=== PATIENT | male | born 1985 | race Caucasian/White ===

== ENCOUNTER 2017-07-10 11:30 | Emergency (ER) | payer MEDICAID, OTHER ==
[2017-07-10 11:37] VITALS: BP 125/84; PULSE 101; RESP 16; TEMP 96.8; O2SAT 98
[2017-07-10] MEDS ORDERED: NS 1,000 ML IV ONE (11:51)
[2017-07-10] MEDS ORDERED: ONDANSETRON 4 MG/2 ML VIAL IVP ONE (11:54)
[2017-07-10 11:55] LABS: PLATELET COUNT 268 10^3/uL (150-400)
--- NOTE | 2017-07-10 11:56 | EDPHY ---
H & P Stated Complaint: abd pain N/V/D x 1 week Time Seen by Provider: 07/10/17 11:50 HPI/ROS: CHIEF COMPLAINT: Abdominal pain, vomiting and diarrhea HISTORY OF PRESENT ILLNESS: The patient presents to the ED with complaints of severe left upper quadrant pain, vomiting and diarrhea. The patient's symptoms have been worsening over the past week and acutely worsening over the past day. The patient does have a history of chronic abdominal pain. He reportedly has been hospitalized for this condition in the past. He reports he has a history of pancreatitis. The patient denies any alcohol use. The patient denies prior history of abdominal surgery. The patient is not currently under the care of a primary care provider. He reportedly has a history of kidney stones. He reports he has been hospitalized at [facility] for this condition in the past. The patient reports his pain is 10/10. REVIEW OF SYSTEMS: A comprehensive 10 point review of systems is otherwise negative aside from elements mentioned in the history of present illness. Source: Patient Exam Limitations: No limitations - Medical/Surgical History Hx Asthma: No Hx Chronic Respiratory Disease: No Hx Diabetes: No Hx Cardiac Disease: No Hx Renal Disease: No Hx Cirrhosis: No Hx Alcoholism: No Hx HIV/AIDS: No Hx Splenectomy or Spleen Trauma: No Other PMH: prostatitis. pancreatitis - Social History Smoking Status: Never smoked - Physical Exam Exam: General Appearance: Alert, mild discomfort secondary to pain Eyes: Pupils equal and round no pallor or injection ENT, Mouth: Mucous membranes moist Respiratory: There are no retractions, lungs are clear to auscultation Cardiovascular: Regular rate and rhythm Gastrointestinal: Tenderness to palpation in the left upper quadrant, no rebound or guarding. Neurological: A&O, normal motor function, normal sensory exam, normal cranial nerves Skin: Warm and dry, no rashes Musculoskeletal: Neck is supple nontender Extremities: symmetrical, full range of motion Constitutional: Initial Vital Signs Temperature (C) 36.0 C 07/10/17 11:34 Heart Rate 101 H 07/10/17 11:34 Respiratory Rate 16 07/10/17 11:34 Blood Pressure 125/84 H 07/10/17 11:34 O2 Sat (%) 98 07/10/17 11:34 O2 Delivery Mode Room Air Allergies/Adverse Reactions: most all antibiotics Allergy (Severe, Uncoded 01/04/13 16:36) Home Medications: Medication Instructions Recorded Gabapentin 07/10/17 Nucynta 07/10/17 Ondansetron Odt [Zofran Odt] 4 mg PO Q4PRN PRN #20 tab 07/10/17 Pantoprazole Sodium [Protonix 40mg 40 mg PO DAILY #30 tab 07/10/17 (*)] Valium 07/10/17 Medical Decision Making ED Course/Re-evaluation: The patient presents to the ED with an acute exacerbation of chronic abdominal pain. The patient had an IV established. He received IV Zofran, 2.5 mg of Haldol and IV fluids. The patient's CBC, serum chemistries and lipase are within normal limits. I reviewed the patient's past medical records. The patient was seen at [facility] in March. He had a negative CT scan of his abdomen and pelvis that point time. His presentation was identical. The patient has been seen at a number of emergency department for this in the past. I find his examination to be benign and no indication to repeat imaging. The patient tells me he recently has cut back on using his marijuana. I discussed with him the association between chronic daily marijuana use and cyclic vomiting syndrome. The patient will be discharged home with prescriptions for Zofran and Protonix. He is given the number of our engraver picture for further follow-up. Differential Diagnosis: Differential diagnosis considered includes cyclic vomiting syndrome, pancreatitis, gastritis, cholecystitis, appendicitis - Data Points Laboratory Results: Laboratory Results 07/10/17 11:47 07/10/17 11:47 07/10/17 07/10/17 07/10/17 11:47 11:47 11:47 WBC 8.98 10^3/uL 10^3/uL (3.80-9.50) RBC 5.35 10^6/uL 10^6/uL (4.40-6.38) Hgb 16.3 g/dL g/dL (13.7-17.5) Hct 48.1 % % (40.0-51.0) MCV 89.9 fL fL (81.5-99.8) MCH 30.5 pg pg (27.9-34.1) MCHC 33.9 g/dL g/dL (32.4-36.7) RDW 12.0 % % (11.5-15.2) Plt Count 268 10^3/uL 10^3/uL (150-400) MPV 9.1 fL fL (8.7-11.7) Neut % (Auto) 65.2 % % (39.3-74.2) Lymph % (Auto) 25.8 % % (15.0-45.0) [place] % (Auto) 7.1 % % (4.5-13.0) Eos % (Auto) 1.2 % % (0.6-7.6) Baso % (Auto) 0.3 % % (0.3-1.7) Nucleat RBC Rel Count 0.0 % % (0.0-0.2) Absolute Neuts (auto) 5.84 10^3/uL 10^3/uL (1.70-6.50) Absolute Lymphs (auto) 2.32 10^3/uL 10^3/uL (1.00-3.00) Absolute Monos (auto) 0.64 10^3/uL 10^3/uL (0.30-0.80) Absolute Eos (auto) 0.11 10^3/uL 10^3/uL (0.03-0.40) Absolute Basos (auto) 0.03 10^3/uL 10^3/uL (0.02-0.10) Absolute Nucleated RBC 0.00 10^3/uL 10^3/uL (0-0.01) Immature Gran % 0.4 % % (0.0-1.1) Immature Gran # 0.04 10^3/uL 10^3/uL (0.00-0.10) Sodium 143 mEq/L mEq/L (135-145) Potassium 3.6 mEq/L mEq/L (3.5-5.2) Chloride 98 mEq/L mEq/L (97-110) Carbon Dioxide 28 mEq/l mEq/l (22-31) Anion Gap 17 mEq/L H mEq/L (8-16) BUN 20 mg/dL mg/dL (7-23) Creatinine 1.1 mg/dL mg/dL (0.7-1.3) Estimated GFR > 60 Glucose 74 mg/dL mg/dL (70-100) Calcium 9.6 mg/dL mg/dL (8.5-10.4) Total Bilirubin 0.7 mg/dL mg/dL (0.1-1.4) Conjugated Bilirubin 0.3 mg/dL mg/dL (0.0-0.5) Unconjugated Bilirubin 0.4 mg/dL mg/dL (0.0-1.1) AST 23 IU/L IU/L (17-59) ALT 42 IU/L IU/L (21-72) Alkaline Phosphatase 61 IU/L IU/L (38-126) Total Protein 8.5 g/dL H g/dL (6.3-8.2) Albumin 5.4 g/dL H g/dL (3.5-5.0) Lipase 60 IU/L IU/L (23-300) Urine Color PALE YELLOW Urine Appearance CLEAR Urine pH 6.0 (5.0-7.5) Ur Specific [place] 1.006 (1.002-1.030) Urine Protein NEGATIVE (NEGATIVE) Urine Ketones NEGATIVE (NEGATIVE) Urine Blood NEGATIVE (NEGATIVE) Urine Nitrate NEGATIVE (NEGATIVE) Urine Bilirubin NEGATIVE (NEGATIVE) Urine Urobilinogen NEGATIVE EU EU (0.2-1.0) Ur Leukocyte Esterase NEGATIVE (NEGATIVE) Urine Glucose NEGATIVE (NEGATIVE) Medications Given: Discontinued Medications Haloperidol Lactate (Haldol Injection) 2.5 mg IVP EDNOW ONE Stop: 07/10/17 12:43 Last Admin: 07/10/17 12:49 Dose: 2.5 mg Sodium Chloride (Ns) 1,000 mls @ 0 mls/hr IV EDNOW ONE; Wide Open PRN Reason: Protocol Stop: 07/10/17 11:52 Last Admin: 07/10/17 11:59 Dose: 1,000 mls Morphine Sulfate (Morphine) 4 mg IVP EDNOW ONE Stop: 07/10/17 12:40 Last Admin: 07/10/17 12:41 Dose: 4 mg Ondansetron HCl (Zofran) 4 mg IVP EDNOW ONE Stop: 07/10/17 11:55 Last Admin: 07/10/17 11:59 Dose: 4 mg Departure - Departure Disposition: Home, Routine, Self-Care Clinical Impression: Chronic abdominal pain Condition: Good Instructions: Acute Abdominal Pain (ED) Additional Instructions: 1. I recommend following up with a engraver picture you have been referred to for further evaluation of your chronic abdominal pain. 2. I recommend complete abstinence from marijuana as you may be experiencing cannabis induced hyperemesis syndrome. 3. Protonix as prescribed. 4. Zofran as prescribed.
[2017-07-10] MEDS ORDERED: HALOPERIDOL LACT 5 MG/ML INJ IVP ONE (12:42)
[2017-07-10] MEDS ORDERED: IOPAMIDOL (ISOVUE-300) 100 ML BTL ONE (14:29)
== END 2017-07-10 15:20 | disposition home or self-care (01) ==
DX: R10.12 Left upper quadrant pain (principal); G89.29 Other chronic pain; E86.9 Volume depletion, unspecified
CPT/HCPCS: 96374; J1630; J2270; J2405; Q9967

== ENCOUNTER 2018-10-15 13:06 | Emergency (ER) | payer MEDICAID | END 2018-10-15 14:54 | disposition left against medical advice (07) ==